=== PATIENT | female | born 1950 | race Caucasian/White ===

== ENCOUNTER 2017-12-11 06:05 | Day surgery (SDC) | payer MEDICARE, OTHER, SELFPAY ==
[2017-12-11] VITALS (8 sets, daily range): BP systolic 104–131; BP diastolic 58–64; PULSE 59–65; RESP 12–18; TEMP 36–36.2; O2SAT 94–98; BMI 24.5
--- NOTE | 2017-12-11 07:04 | PCM.HP.STD ---
Problem List (1) Screening for intestinal cancer Status: Acute History of Present Illness Date of Admission: 12/11/17 The patient is a 66 year old F who is in her normal state of health. No complaint of abdominal pain or rectal bleeding or unexpected weight loss. Her previous colonoscopy was approximately 12 years prior. No chest pain. No shortness of breath. She was able to tolerate a bowel prep. There is no direct family members with colon cancer. Past Medical History Allergies No Known Allergies Allergy (Verified 12/07/17 15:33) Home Medications: Ambulatory Orders Medication Instructions Recorded Fluoxetine [Prozac] 40 mg PO DAILY 12/07/17 Lorazepam [Ativan] 0.5 mg PO DAILY 12/07/17 Metoprolol(XL)Succ [Toprol Xl 25 mg PO QHS 12/07/17 (Beta Gabrielle)] Smoking Status: Never smoker Review of Systems Constitutional: Denies: Anorexia Eyes: Denies: Blurred vision HEENT: Denies: Difficulty Hearing Cardiovascular: Denies: Chest Pain Respiratory: Denies: Cough Gastrointestinal: Denies: Abdominal Pain Genitourinary: Denies: Dysuria Musculoskeletal: Denies: Muscle pain Skin: Denies: Dryness Neurological: Denies: Balance problems Psychiatric: Denies: Anxiety Endocrine: Denies: Change in Body Habitus Hematologic/ Lymphatic: Denies: Adenopathy VTE Information - Inpt Only VTE Present on Admission: No Patient Problems: Active and Suspected Problems Screening for intestinal cancer (Acute) - Physical Exam General: Alert, Oriented x3, Cooperative, No apparent distress HEENT: Atraumatic Oral: Moist Mucosa Neck: Supple Lungs: Clear to auscultation Cardiovascular: Regular rate, Regular Rhythm Abdomen: Bowel Sounds Present, Soft, Non Tender, Non-Distended Extremities: No clubbing Musculoskeletal: No Tenderness to Palpation of Joints or Extremities Lymphatic: No Cervical, Supraclavicular, or Inguinal Adenopathy Neurological: Cranial nerves II-XII grossly intact Psych/Mental Status: Normal Affect Vital Signs Temp Pulse Resp BP Pulse Ox 96.9 F L 65 18 131/64 H 98 12/11/17 06:41 12/11/17 06:41 12/11/17 06:41 12/11/17 06:41 12/11/17 06:41 Oxygen Delivery Method Room Air Weight: 143 lb 1.28 oz Body Mass Index (BMI) 24.5 Assessment/Plan All Active Problems Screening for intestinal cancer (Acute) I am recommending the patient is screening colonoscopy with possible biopsy or polypectomy is indicated. She is aware of the technique, benefits, risks and alternatives. She has had an opportunity to ask and have questions answered. We will proceed at her discretion. Higinio Ly M.D., F.A.C.S.
--- NOTE | 2017-12-11 07:33 | PCM.OPRPT ---
Problem List (1) Screening for intestinal cancer Status: Acute Report of Operation Date of Procedure: 12/11/17 Pre-Operative Diagnosis: Screening for intestinal cancer Post-Operative Diagnosis: Sigmoid diverticulosis. Very elongated tortuous colon Surgery/Procedure Performed:: Colonoscopy Description of Surgical Findings:: Timeout and informed consent was obtained. 66-year-old female was taken to the endoscopy room. She was placed in the left lateral decubitus position. Because of a previous report that she awoke during a knee procedure we proceeded with monitored anesthesia care. Digital rectal exam performed. Slightly lax anal tone. Moderate internal and external hemorrhoids. No active bleeding. Flexible colonoscope inserted the rectum advanced through a tortuous sigmoid colon moderately involved with diverticulosis. The scope was then tediously advanced past the splenic flexure. She was then placed in a supine position and the scope was slowly advanced to the hepatic flexure. With some transabdominal pressure the scope was then eventually advanced to the cecum. The cecum ileocecal valve was achieved. This was technically challenging doing to the tortuosity of the colon. Bowel prep was good there was still some liquid stool which could be aspirated. The scope was carefully withdrawn from the cecum ascending colon transverse colon descending colon. In the sigmoid colon there was moderate diverticulosis but no evidence of acute inflammatory disease. The scope was withdrawn to the rectum it was retroflexed the anorectal verge inspected moderate hemorrhoidal changes noted. Excess fluid and air was aspirated free the procedure was completed with the patient tolerating it well. Impression Sigmoid diverticulosis Elongated tortuous colon Previous colonoscopy was 12 years prior. Next screening colonoscopy recommended in 10 years. Monitored anesthesia care was quite beneficial secondary to the tortuosity of her colon Cc: Dr. Chase Ly M.D., F.A.C.S. Type of Anesthesia:: MAC
== END 2017-12-11 08:35 | disposition home or self-care (01) ==
LOC: EN 06:06 → AC 06:09
PROVIDERS: Family Provider Family Medicine; PCP Family Medicine; Visit Provider Surgery
PROC: 0DJD8ZZ Inspection of Lower Intestinal Tract, Via Natural or Artificial Opening Endoscopic (ICD-10-PCS; CPT 45378; principal; 2017-12-11 07:10)
DX: Z12.11 Encounter for screening for malignant neoplasm of colon (principal); K57.30 Diverticulosis of large intestine without perforation or abscess without bleeding; K21.9 Gastro-esophageal reflux disease without esophagitis; I10 Essential (primary) hypertension; F41.9 Anxiety disorder, unspecified
CPT/HCPCS: G0121; J7120

== ENCOUNTER → 2021-05-10 07:41 | Outpatient (CLI) | payer MEDICARE, OTHER, SELFPAY ==
--- NOTE | 2021-05-10 07:45 | VDLE_ITS ---
Reason For Study: Pain RIGHT LEFT CFV is compressible, spontaneous, phasic, GSV is normal. competent and demonstrates normal CFV is compressible, spontaneous, phasic, augmentation. competent, and demonstrates normal Procedure augmentation. This is a venous duplex using B-mode, color FV is compressible, spontaneous, phasic, flow and spectral Doppler. competent and demonstrates normal Exam performed in department. augmentation. A preliminary report was called and/or faxed POP V is compressible, spontaneous, phasic, to Dr. Hassan. competent and demonstrates normal augmentation. T/P Trunk is compressible. PTV is compressible. LT PerV is compressible. VL/Venous Duplex US, Unilateral Interpretation Summary Deep veins of the left lower extremity are patent and compressible segmentally. There is no evidence of left lower extremity deep vein thrombosis. Valvular competence appears intac t within the proximal deep venous system on the left . The left great saphenous vein appears patent a nd compressible segmentally. Ordering Physician: Ondina Hassan Referring Physician: Frank Stone Performed By: Jess Hurt, RANDELL, RVT
== END ==
PROVIDERS: PCP Family Medicine; Referring Provider Podiatrist; Visit Provider Podiatrist
DX: M79.605 Pain in left leg (principal)
CPT/HCPCS: 93971